=== PATIENT | male | born 1985 | race Caucasian/White ===

== ENCOUNTER → 2016-09-12 | Outpatient (CLI) | payer BC | LOC: LAB 15:49 | DX: M10.071 Idiopathic gout, right ankle and foot (principal) ==

== ENCOUNTER → 2016-10-05 | Outpatient (CLI) | payer BC | LOC: LAB 14:01 | DX: M10.071 Idiopathic gout, right ankle and foot (principal) ==

== ENCOUNTER → 2017-06-19 | Outpatient (CLI) | payer SELFPAY ==
[2017-06-19 19:28] LABS: HEMATOCRIT 41.5 % (42.0-52.0); HEMOGLOBIN 14.2 g/dL (13.5-18.0); RED BLOOD COUNT 4.69 M/mm3 (4.20-5.60); RED CELL DISTRIBUTION WIDTH 12.5 % (11.5-14.5)
[2017-06-19 20:37] LABS: MEAN PLATELET VOLUME 13.1 fl (7.4-10.4)
== END ==
LOC: RAD 16:50
PROVIDERS: Family Medicine
DX: R22.42 Localized swelling, mass and lump, left lower limb (principal)

== ENCOUNTER → 2017-07-18 | Outpatient (CLI) | payer BC | LOC: LAB 13:12 | DX: M1A.9XX0 Chronic gout, unspecified, without tophus (tophi) (principal) ==

== ENCOUNTER 2021-11-29 16:17 | Emergency (ER) | payer OTHER ==
[~2021-11-29] VITALS: Ht 182.9 cm; Wt 100.0 kg
[2021-11-29 19:15] VITALS: BP 161/100
== END 2021-11-29 19:15 | disposition home or self-care (01) ==
LOC: ED 16:17
DX: S61.211A Laceration without foreign body of left index finger without damage to nail, initial encounter (principal); F17.210 Nicotine dependence, cigarettes, uncomplicated; Z28.310 Unvaccinated for COVID-19; W26.8XXA Contact with other sharp object(s), not elsewhere classified, initial encounter; Y92.59 Other trade areas as the place of occurrence of the external cause; Y99.0 Civilian activity done for income or pay
CPT/HCPCS: 90715